=== PATIENT | male | born 1985 | race Two or more races ===

== ENCOUNTER 2020-05-16 06:58 | Inpatient (IN) | payer OTHER ==
[2020-05-16 07:20] VITALS: BMI 23.3
[2020-05-16] MEDS ORDERED: FAMOTIDINE 20 MG/50 ML IVPB 20 MG/50 ML MG IVPB ONE ×2 (07:36→08:27)
[2020-05-16] MEDS ORDERED: SODIUM CHLORIDE 1,000 ML IV STA ×2 (07:36→09:07)
[2020-05-16] MEDS ORDERED: MAG HYDROX/AL HYDROX/SIMETH 30 ML UNIT-DOSE CUP PO ONE (07:36)
--- NOTE | 2020-05-16 07:44 | PDOC ---
History of Present Illness - General Chief Complaint: Nausea/Vomiting Stated Complaint: VOMITING Time Seen by Provider: 05/16/20 07:32 - History of Present Illness Initial Comments: Pt is a 34yo M with no significant PMH who presents with nausea/vomiting. States that episodes began last night with "throwing up all night", last ate soup around 9pm. States that he has had ~20 episodes of emesis, described as watery brown. States that he tried to drink water, but also threw that back up. Denies any recent travel, sick contacts. Reports chest pain with vomiting. Denies fevers, chills, abdominal pain, diarrhea, constipation. Denies any past episodes of similar symptoms. States that he regularly drinks 3-4 12oz cans of beers a day. Last drink was 5 days ago, when he had 5 cans of beer. PCP: none PMH: denies PSHx: hand surgery Meds: denies All: NKDA Social: smokes 3 cigarettes/day, drink 3-4 beers/day, denies illicit substance use Past History - Medical History Allergies/Adverse Reactions: Allergies Allergy/AdvReac Type Severity Reaction Status Date / Time No Known Drug Allergies Allergy Mild Verified 05/16/20 07:14 [employer] Allergy Intermediate Hives Uncoded 05/16/20 07:14 Home Medications: Ambulatory Orders Tobramycin 0.3% Ophth Soln [Tobrex Ophthalmic Solution -] 1 drop OS Q4HWA #1 drops 01/30/15 COPD: No - Psycho-Social/Smoking History Smoking Status: Yes Smoking History: Never smoked Have you smoked in the past 12 months: Yes Number of Cigarettes Smoked Daily: 3 Information on smoking cessation initiated: No 'Breaking Loose' booklet given: 01/30/15 - Substance Abuse Hx (Audit-C & DAST Scrn) How often the patient has a drink containing alcohol: Never Score: In Men: 4 or > Positive; In Women: 3 or > Positive: 0 Screen Result (Pos requires Nsg. Audit-10AR): Negative In the last yr the pt used illegal drug/Rx for NonMed reason: No Score: Yes response is considered Positive: 0 Screen Result (Positive result requires Nsg. DAST-10): Negative Review of Systems - Review of Systems Comments:: CONSTITUTIONAL:denies fever, chills, diaphoresis, generalized weakness HEENT:denies rhinorrhea, nasal congestion, sore throat, ear pain, eye pain, visual Changes CARDIOVASCULAR:denies chest pain, syncope, palpitations, irregular heart rate, lightheadedness, peripheral edema RESPIRATORY:denies cough, shortness of breath, wheezing GASTROINTESTINAL: reports nausea, vomiting; denies abdominal pain, diarrhea, constipation GENITOURINARY:denies dysuria, frequency, urgency, hematuria MUSCULOSKELETAL:denies myalgia, arthralgia, neck pain, back pain HEMATOLOGIC/IMMUNOLOGIC:denies easy bleeding, easy bruising NEUROLOGIC:denies headache, loss of consciousness SKIN:denies rash, itching, pallor *Physical Exam - Vital Signs Last Vital Signs Temp Pulse Resp BP Pulse Ox 99.0 F 111 H 18 160/104 H 97 05/16/20 07:15 05/16/20 07:15 05/16/20 07:15 05/16/20 07:15 05/16/20 07:15 - Physical Exam General: awake, AOX3 (not oriented to month), in no acute distress, tremulous Head: normocephalic, atraumatic Eyes: PERRL, anicteric sclera, conjunctiva clear ENT: hearing grossly normal, oropharynx clear without exudates. Moist mucous membranes, tongue fasciculations Neck: supple, normal ROM Lung: equal breath sounds b/l, CTA b/l, no crackles, wheezes; no distress, speaks full sentences Heart: tachycardic, normal S1, S2, no murmurs, rubs, gallops Abdomen: soft, non tender, normoactive bowel sounds, no guarding, rebound, masses Extremities: no edema, no erythema or tenderness, DP/PT pulses 2+ and symmetric, no clubbing, cyanosis Neuro: moves all extremities, slow speech, sensation intact Skin: warm, dry, no rashes or lesions noted ED Treatment Course - LABORATORY CBC & Chemistry Diagram: 05/16/20 07:35 05/16/20 07:35 Medical Decision Making - Medical Decision Making Pt is a 34yo M with no significant PMH who presents with nausea/vomiting. Tremulous on exam. Vital Signs Period Temp Pulse Resp BP Sys/Ramos Pulse Ox Last 24 Hr 99.0 F 111 18 160/104 97 DDx: alcohol withdrawal, asad crooks tear, peptic ulcer Plan: labs, ativan, anti-emetic, IVF EKG: HR 81bpm, normal sinus rhythm, OR 140ms, QRS 90ms, QTc 432ms, no ST changes Labs: thrombocytopenia, no leukocytosis, no anemia, hyponatremia, hypokalemia, no MARSHALL, elevated LFTs, +alcohol Laboratory Tests 05/16/20 05/16/20 07:35 07:35 WBC 6.2 RBC 4.22 Hgb 13.9 Hct 40.0 MCV 94.9 MCH 32.9 MCHC 34.7 RDW 16.1 H Plt Count 119 L D MPV 8.0 Absolute Neuts (auto) 5.2 Neutrophils % 84.9 H D Lymphocytes % 4.0 L D Monocytes % 10.6 H Eosinophils % 0.1 D Basophils % 0.4 Nucleated RBC % 0 Sodium 120 L Potassium 3.3 L Chloride 84 L Carbon Dioxide 16 L Anion Gap 21 H BUN 3.6 L Creatinine 0.9 Est GFR (CKD-EPI)AfAm 127.80 Est GFR (CKD-EPI)NonAf 110.27 Random Glucose 134 H Calcium 8.6 Magnesium 2.4 Total Bilirubin 1.0 AST 117 H ALT 128 H Alkaline Phosphatase 115 Total Protein 7.8 Albumin 4.4 Lipase 79 Alcohol, Quantitative 18.3 H Gave Ativan, patient's tremor improved but still present; gave librium Spoke with Dr. Jordon Duron who accepted care for patient. Admitting Dr. Ch Disposition Admit 05/16/20 09:20 Discharge - Discharge Information Problems reviewed: Yes Clinical Impression/Diagnosis: Hyponatremia Alcohol withdrawal Qualifiers: Complication of substance-induced condition: uncomplicated Qualified Code(s): F10.230 - Alcohol dependence with withdrawal, uncomplicated Condition: Stable - Admission Yes - Follow up/Referral - Patient Discharge Instructions - Post Discharge Activity
[2020-05-16 08:12] LABS: BASO % 0.4 % (0-2.0); EOS % 0.1 % (0-4.5); HEMOGLOBIN 13.9 GM/dL (11.7-16.9); MCH 32.9 pg (25.7-33.7); MCHC 34.7 g/dl (32.0-35.9); MEAN CELL VOLUME 94.9 fl (80-96); MONO % 10.6 % (3.8-10.2); NEUT % 84.9 % (42.8-82.8); PLATELET COUNT 119 K/MM3 (134-434); RBC 4.22 M/mm3 (4.00-5.60); RDW 16.1 % (11.9-15.9); WHITE BLOOD COUNT 6.2 K/mm3 (4.0-10.0)
[2020-05-16 08:24] LABS: ALBUMIN 4.4 g/dl (3.4-5.0); BLOOD UREA NITROGEN 3.6 mg/dL (7-18); CALCIUM 8.6 mg/dL (8.5-10.1); CREATININE 0.9 mg/dL (0.55-1.3); MAGNESIUM 2.4 mg/dL (1.8-2.4); POTASSIUM 3.3 mmol/L (3.5-5.1); TOT PROT 7.8 g/dl (6.4-8.2)
[2020-05-16] MEDS ORDERED: LORazepam 2 MG/ML SDV VIAL ONE (08:25)
[2020-05-16] MEDS ORDERED: MAG HYDROX/AL HYDROX/SIMETH 30 ML UNIT-DOSE CUP ONE (08:26)
--- NOTE | 2020-05-16 08:34 | PDOC ---
Attending Attestation - Resident Resident Name: Echo Saravia - ED Attending Attestation I have performed the following: I have examined & evaluated the patient, The case was reviewed & discussed with the resident, I agree w/resident's findings & plan, Exceptions are as noted - HPI HPI: 05/16/20 08:31 34 M with no significant PMH presents to ED with nausea and vomiting. Pt reports 2 days of severe persistent nausea. Denies any significant abdominal pain. States that he is a daily drinker but denies any ETOH within last 5 days. No h/o withdrawals. No history of seizures. Denies any auditory or visual hallucinations. - Physicial Exam PE: 05/16/20 08:32 See resident exam - Medical Decision Making 05/16/20 08:33 34 M with N+V, likely ETOH withdrawal. Pt tremulous on exam. - Labs - Ativan - GI cocktail, IV fluids 05/16/20 08:33 Labs notable for hyponatremia - ?beer potomania Mild transaminitis, + serum ETOH Discharge - Discharge Information Problems reviewed: Yes Clinical Impression/Diagnosis: Hyponatremia Alcohol withdrawal Qualifiers: Complication of substance-induced condition: uncomplicated Qualified Code(s): F10.230 - Alcohol dependence with withdrawal, uncomplicated Condition: Stable Disposition: AGAINST MEDICAL ADVICE - Follow up/Referral - Patient Discharge Instructions - Post Discharge Activity
[2020-05-16] MEDS ORDERED: chlordiazePOXIDE HCL 25 MG CAPSULE PO ONE (08:45)
[2020-05-16 10:31] LABS: BLOOD UREA NITROGEN 3.2 mg/dL (7-18); CALCIUM 8.2 mg/dL (8.5-10.1); CREATININE 0.6 mg/dL (0.55-1.3); POTASSIUM 3.6 mmol/L (3.5-5.1)
[2020-05-16] MEDS ORDERED: SODIUM CHLORIDE 1,000 ML IV SCH (11:30)
[2020-05-16] MEDS ORDERED: diazePAM CARPU-JECT 10 MG/2 ML DISP.SYRIN IVPUSH ONE (11:48)
[2020-05-16] MEDS ORDERED: THIAMINE HCL 100 MG TABLET (FP) ONE (11:51)
[2020-05-16] MEDS ORDERED: THIAMINE HCL 200 MG/2 ML VIAL IVPB ONE (12:00)
[2020-05-16] MEDS ORDERED: diazePAM CARPU-JECT 10 MG/2 ML DISP.SYRIN ONE (12:17)
[2020-05-16] MEDS ORDERED: THIAMINE HCL 200 MG/2 ML VIAL ONE (12:18)
[2020-05-16] MEDS ORDERED: FOLIC ACID 1 MG TABLET (FP) ONE (12:18)
[2020-05-16] MEDS: FOLIC ACID 1 MG TABLET (FP) PO SCH (12:30)
--- NOTE | 2020-05-16 13:01 | HP ---
CHIEF COMPLAINT: Abdominal pain PCP: None HISTORY OF PRESENT ILLNESS: 34yo M with no significant medical history who presents today with agitation and abdominal pain. Patient reports he drinks 3-5 beer cans per day with occasional binge drinking on the weekends with last drink 5 days prior. Patient reports having multiple episodes of NB/NB vomiting up to 15 times in one day. He endorses PO intolerance and could not drink without vomiting. Patient currently is experiencing chills, tremoring, tactile disturbances on upper extremities without any motor difficulties, and diaphoresis. Pt has never been given diagnosis of Hepatitis before and has never received blood products. He has poor follow-up, but states he hasn't had any reason to go to the doctor. Patient would like to go to rehab/detox to help with his alcohol withdrawal. Pt denies any travel, sick contacts, shortness of breath, visual and audio hallucinations. Recent Travel: None PAST MEDICAL HISTORY: None PAST SURGICAL HISTORY: None Social History: Smokin cigarettes per day Alcohol: 3-5 beer cans per day (last drink 5 days prior; occassional binge drinking) Drugs: No drugs Family History: None that he knows. Parents both alive Allergies No Known Drug Allergies Allergy (Mild, Verified 05/16/20 07:14) AM[employer] Allergy (Intermediate, Uncoded 05/16/20 07:14) Hives HOME MEDICATIONS: Home Medications Medication Instructions Recorded Tobramycin 0.3% Ophth Soln [Tobrex 1 drop OS Q4HWA #1 drops 01/30/15 Ophthalmic Solution -] REVIEW OF SYSTEMS As per HPI PHYSICAL EXAMINATION Vital Signs - 24 hr 05/16/20 05/16/20 07:15 11:20 Temperature 99.0 F 98.5 F Pulse Rate 111 H Pulse Rate [ 116 H Left] Respiratory 18 Rate Blood Pressure 160/104 H Blood Pressure 136/88 [Right Arm] O2 Sat by Pulse 97 100 Oximetry (%) GENERAL: Mod distress, Awake, alert, and fully oriented HEENT: Nc/AT, EOMI with minimal horizontal nystagmus, ROSINA, no scleral icterus, dry MM NECK: No JVD LUNGS: CTA bilaterally. No wheezes, and no crackles. No accessory muscle use. HEART: Tachycardic with regular rhythm, normal S1 and S2 without murmur ABDOMEN: Soft, minimal tenderness in the epigastric region, nondistendend, no surgical scars seen, no rebound, no guarding, no hepatomegaly. No asterixis EXTREMITIES: 2+ pulses, warm, well-perfused. No calf tenderness. No peripheral edema. NEUROLOGICAL: cotton presser II-XII intact. Sensation intact grossly in all four extremities. Strength 5/5 in all four extremities. Mild tremoring. Horizontal nystagmus as above. PSYCHIATRIC: Cooperative. Good eye contact. Appropriate mood and affect. SKIN: Warm, dry, no rashes, no jaundice, normal capillary refill. Laboratory Results - last 24 hr 05/16/20 05/16/20 05/16/20 07:35 07:35 07:35 WBC 6.2 RBC 4.22 Hgb 13.9 Hct 40.0 MCV 94.9 MCH 32.9 MCHC 34.7 RDW 16.1 H Plt Count 119 L D MPV 8.0 Absolute Neuts (auto) 5.2 Neutrophils % 84.9 H D Lymphocytes % 4.0 L D Monocytes % 10.6 H Eosinophils % 0.1 D Basophils % 0.4 Nucleated RBC % 0 Sodium 120 L Potassium 3.3 L Chloride 84 L Carbon Dioxide 16 L Anion Gap 21 H BUN 3.6 L Creatinine 0.9 Est GFR (CKD-EPI)AfAm 127.80 Est GFR (CKD-EPI)NonAf 110.27 Random Glucose 134 H Serum Osmolality 261 L Calcium 8.6 Magnesium 2.4 Total Bilirubin 1.0 AST 117 H ALT 128 H Alkaline Phosphatase 115 Total Protein 7.8 Albumin 4.4 Lipase 79 Alcohol, Quantitative 18.3 H 05/16/20 09:00 WBC RBC Hgb Hct MCV MCH MCHC RDW Plt Count MPV Absolute Neuts (auto) Neutrophils % Lymphocytes % Monocytes % Eosinophils % Basophils % Nucleated RBC % Sodium 124 L Potassium 3.6 Chloride 89 L Carbon Dioxide 20 L Anion Gap 14 BUN 3.2 L Creatinine 0.6 Est GFR (CKD-EPI)AfAm 150.97 Est GFR (CKD-EPI)NonAf 130.26 Random Glucose 111 H Serum Osmolality Calcium 8.2 L Magnesium Total Bilirubin AST ALT Alkaline Phosphatase Total Protein Albumin Lipase Alcohol, Quantitative ASSESSMENT/PLAN: Alcohol Withdrawal Syndrome Hypoosmolar Hyponatremia Transaminitis Thrombocytopenia Elevated BP in setting of above --CIWA score 18 --Will start Librium taper --Monitor LFTs and DT precautions --Consulted detox specialist for management and placement into detox facility --Transaminitis related to alcohol use --Thaimine daily --Folic acid daily --Gentle IV hydration: NS @75cc/hr --Urinary tox screen ordered --Hepatitis panel ordered --If continued increase in LFTs can perform RUQ U/S --Hypoosmolar hyponatremia likely related to vomiting and alcohol use --Will use gentle IVF and monitor Na --Do not raise Na more than 10 mEq in 24/hrs FEN: Fluids: Gentle hydration as above Electrolyte abnormalities: Mild hypokalemia; replete Nutrition: NPO until vomiting/nausea ceases PPX: GI - Protonix DVT - Lovenox daily Dispo: Med-surg admit Tito Ch, DO - IM Visit type - Emergency Visit Emergency Visit: Yes ED Registration Date: 05/16/20 Care time: The patient presented to the Emergency Department on the above date and was hospitalized for further evaluation of their emergent condition. - New Patient This patient is new to me today: Yes Date on this admission: 05/16/20 - Critical Care Critical Care patient: No
[2020-05-16] MEDS ORDERED: POTASSIUM CHLORIDE TABS 20 MEQ TABLET.ER (FP) PO ONE ×2 (13:22→13:45)
[2020-05-16] MEDS ORDERED: KCL 10 MEQ IVPB 10 MEQ/100 ML INFUS.BAG IVPB SCH (13:30)
[2020-05-16] MEDS ORDERED: chlordiazePOXIDE HCL 25 MG CAPSULE ONE (13:45)
[2020-05-16] MEDS: chlordiazePOXIDE HCL 25 MG CAPSULE PO SCH ×2 (13:46→21:30)
--- NOTE | 2020-05-16 14:33 | CON.NEP ---
Consult Consult Specialty:: nephrology Reason for Consultation:: hyponatremia - History of Present Illness History of Present Illness: Pt is a 34yo M with no significant PMH who presents with nausea/vomiting. States that episodes began last night with "throwing up all night", last ate soup around 9pm. States that he has had ~20 episodes of emesis, described as watery brown. States that he tried to drink water, but also threw that back up. Denies any recent travel, sick contacts. Reports chest pain with vomiting. Denies fevers, chills, abdominal pain, diarrhea, constipation. Denies any past episodes of similar symptoms. States that he regularly drinks 3-4 12oz cans of beers a day. Last drink was 5 days ago, when he had 5 cans of beer. Says he was drinking water because of the vomiting. Also complains of a rash which he says is poison lula. Has tremors and wants something for them - History Source History Provided By: Patient Limitations to Obtaining History: No Limitations - Alcohol/Substance Use Hx Alcohol Use: Yes (6 beers/day) - Smoking History Smoking history: Never smoked Have you smoked in the past 12 months: Yes Aproximately how many cigarettes per day: 3 Home Medications - Allergies Allergies/Adverse Reactions: Allergies Allergy/AdvReac Type Severity Reaction Status Date / Time No Known Drug Allergies Allergy Mild Verified 05/16/20 07:14 [employer] Allergy Intermediate Hives Uncoded 05/16/20 07:14 - Home Medications Home Medications: Ambulatory Orders NK [No Known Home Medication] 05/16/20 Review of Systems - Review of Systems Constitutional: reports: Weakness Eyes: reports: No Symptoms HENT: reports: No Symptoms Neck: reports: No Symptoms Cardiovascular: reports: No Symptoms Respiratory: reports: No Symptoms Gastrointestinal: reports: Vomiting Genitourinary: reports: No Symptoms Breasts: reports: No Symptoms Reported Musculoskeletal: reports: No Symptoms Integumentary: reports: Rash Neurological: reports: Tremors Endocrine: reports: No Symptoms Hematology/Lymphatic: reports: No Symptoms Psychiatric: reports: No Symptoms Nephrology Consult - Height Height: 5 ft 6 in - Weight Weight: 145 lb - BMI Body Mass Index (BMI): 23.3 - Lab Results CBC,BMP: CBC, BMP 05/16/20 07:35 05/16/20 09:00 Anion Gap: Anion Gap Anion Gap 14 MMOL/L (8-16) 05/16/20 09:00 - Imaging Chest X-ray: Report Reviewed - Physical Examination Vital Signs: Vital Signs Temperature 98.5 F 05/16/20 11:20 Pulse Rate 116 H 05/16/20 11:20 Respiratory Rate 18 05/16/20 07:15 Blood Pressure 136/88 05/16/20 11:20 O2 Sat by Pulse Oximetry (%) 100 05/16/20 11:20 Constitutional: Yes: No Distress, Calm Eyes: Yes: Conjunctiva Clear, EOM Intact HENT: Yes: Atraumatic, Normocephalic Neck: Yes: Supple, Trachea Midline Cardiovascular: Yes: Regular Rate and Rhythm Respiratory: Yes: CTA Bilaterally Gastrointestinal: Yes: Normal Bowel Sounds, Soft Renal/: Yes: WNL Musculoskeletal: Yes: WNL Extremities: Yes: WNL Edema: No Peripheral Pulses WNL: Yes Integumentary: Yes: Rash Wound/Incision: Yes: Clean/Dry Neurological: Yes: Alert, Oriented Psychiatric: Yes: Alert, Oriented Assessment/Plan IMPRESSION Hyponatremia- probably from etoh intoxication and little solute intake Rash may be poison lula as he says alcohol dependence r/o withdrawal PLAN agree with saline repeat sodium obtain urine analysis,tsh and cortisol must not allow patients sodium to rise more than 8 by tomorrow start d5w and desmopressin if necessary MV
[2020-05-16 15:29] LABS: EPI CELLS 1 /uL (0-25.1); HYALINE CASTS 0 /uL (0-3.1); URINE APPEARANCE Error; URINE BACTERIA 13 /uL (0-1359); URINE BILIRUBIN NEGATIVE (NEGATIVE); URINE COLOR YELLOW; URINE GLUCOSE (UA) NEGATIVE (NEGATIVE); URINE KETONE 1+ (NEGATIVE); URINE LEUK ESTERASE NEGATIVE (NEGATIVE); URINE NITRITE NEGATIVE (NEGATIVE); URINE PROTEIN NEGATIVE (NEGATIVE); URINE RBC 1 /uL (0-23.9); URINE UROBILINOGEN 0.2 mg/dL (0.2-1.0); URINE WBC 1 /uL (0-25.8)
[2020-05-16 15:52] LABS: COCAINE, UR NEGATIVE ng/ml (CUTOFF=300); METHADONE, UR NEGATIVE ng/ml (CUTOFF=300); OPIATES, URI NEGATIVE ng/ml (CUTOFF=300); PHENCYCLIDINE,URINE NEGATIVE ng/ml (CUTOFF=25); URINE AMPHETAMINES NEGATIVE ng/ml (CUTOFF=500); URINE BARBITURATES NEGATIVE ng/ml (CUTOFF=200); URINE BENZODIAZEPINES NEGATIVE ng/ml (CUTOFF=200)
[2020-05-16 17:49] LABS: BLOOD UREA NITROGEN 3.8 mg/dL (7-18); CALCIUM 8.7 mg/dL (8.5-10.1); CREATININE 0.6 mg/dL (0.55-1.3); POTASSIUM 4.2 mmol/L (3.5-5.1)
[2020-05-16] MEDS: DEXTROSE 5%-WATER - 1,000 ML IV SCH (21:31)
[2020-05-17] MEDS ORDERED: diphenhydrAMINE HCL 25 MG CAPSULE (FP) PO PRN (01:29)
[2020-05-17 03:02] LABS: CALCIUM 8.6 mg/dL (8.5-10.1); CREATININE 0.6 mg/dL (0.55-1.3); POTASSIUM 3.7 mmol/L (3.5-5.1)
[2020-05-17] MEDS ORDERED: DESMOPRESSIN ACETATE 4 MCG/ML AMP IVPB ONE ×2 (04:27→11:00)
[2020-05-17] MEDS ORDERED: DESMOPRESSIN ACETATE 4 MCG/ML AMP SQ ONE (05:15)
[2020-05-17] MEDS: chlordiazePOXIDE HCL 25 MG CAPSULE PO SCH ×3 (05:52→22:18)
[2020-05-17 08:14] LABS: HEMATOCRIT 35.1 % (35.4-49); HEMOGLOBIN 11.9 GM/dL (11.7-16.9); MCH 32.1 pg (25.7-33.7); MEAN CELL VOLUME 94.4 fl (80-96); MEAN PLT VOLUME 8.6 fl (7.5-11.1); PLATELET COUNT 102 K/MM3 (134-434); RBC 3.71 M/mm3 (4.00-5.60); RDW 16.7 % (11.9-15.9); WHITE BLOOD COUNT 2.6 K/mm3 (4.0-10.0)
[2020-05-17 08:45] LABS: ALBUMIN 3.7 g/dl (3.4-5.0); BILIRUBIN,TOTAL 1.1 mg/dL (0.2-1); BLOOD UREA NITROGEN 3.1 mg/dL (7-18); CALCIUM 8.4 mg/dL (8.5-10.1); CREATININE 0.6 mg/dL (0.55-1.3); MAGNESIUM 2.5 mg/dL (1.8-2.4); POTASSIUM 3.4 mmol/L (3.5-5.1); TOT PROT 6.4 g/dl (6.4-8.2)
[2020-05-17] MEDS ORDERED: PT OWN MED DRAWER 7, Y5N ONE ×2 (09:20→10:58)
[2020-05-17] MEDS: FOLIC ACID 1 MG TABLET (FP) PO SCH (09:23)
[2020-05-17] MEDS ORDERED: PANTOPRAZOLE 40 MG TABLET PO SCH (10:00)
[2020-05-17] MEDS ORDERED: ENOXAPARIN NA (PORCINE) 30 MG/0.3 ML DISP.SYRIN SQ SCH (10:00)
--- NOTE | 2020-05-17 10:25 | PN ---
Progress Note (short form) - Note Progress Note: RENAL Pt is awake and alert comfortable says he ate well has no complaints Last Vital Signs Temp Pulse Resp BP Pulse Ox 98.8 F 67 20 121/78 100 05/17/20 05:00 05/17/20 05:00 05/17/20 05:00 05/17/20 05:00 05/17/20 05:00 lungs clear cvs s1s2 rr abd soft ext no edema neuro a+ox3 Current Medications Generic Name Dose Route Start Last Admin Trade Name Freq PRN Reason Stop Dose Admin Chlordiazepoxide HCl 25 mg 05/16/20 13:00 05/17/20 05:52 Librium - PO 05/17/20 21:01 25 mg Q8H MIRELLA Administration Chlordiazepoxide HCl 10 mg 05/19/20 00:00 Librium - PO 05/19/20 23:59 Q12H PRN Signs/symptoms of Withdrawal Chlordiazepoxide HCl 15 mg 05/18/20 05:00 Librium - PO 05/18/20 21:01 Q8H MIRELLA Chlordiazepoxide HCl 10 mg 05/19/20 05:00 Librium - PO 05/19/20 21:01 Q8H MIRELLA Chlordiazepoxide HCl 10 mg 05/20/20 05:00 Librium - PO 05/20/20 05:01 ONCE ONE Diphenhydramine HCl 25 mg 05/17/20 01:29 05/17/20 01:46 Benadryl - PO 25 mg ONCE PRN Administration FOR ITCHING Enoxaparin Sodium 30 mg 05/17/20 10:00 05/17/20 09:23 Lovenox - SQ 30 mg DAILY MIRELLA Administration Folic Acid 1 mg 05/16/20 11:45 05/17/20 09:23 Folic Acid - PO 1 mg DAILY MIRELLA Administration Dextrose 1,000 mls @ 75 mls/hr 05/16/20 19:45 05/16/20 21:31 D5w - IV Not Given ASDIR MIRELLA Pantoprazole Sodium 40 mg 05/17/20 10:00 05/17/20 09:23 Protonix - PO 40 mg DAILY MIRELLA Administration CBC, BMP 05/17/20 06:25 05/17/20 06:25 IMPRESSION appears to have had beer potomania his urine sodium is not lower because he was not eating so had no solute hoing in hypokalemia PLAN agree with d5w since he meena by 18 in 1 day would add desmopressin and monitor sodium MV
--- NOTE | 2020-05-17 13:01 | PN ---
Physical Exam: SUBJECTIVE: Patient seen and examined 05/17/20: Still feels a little shaky but denies any chest pain, sob, nausea, vomiting or abdominal pain; ROS: As per HPI otherwise all other systems reviewed and are engative OBJECTIVE: Vital Signs Period Temp Pulse Resp BP Sys/Ramos Pulse Ox Last 24 Hr 98.4 F-99.4 F 67-104 20-20 121-129/71-82 97-100 GENERAL: The patient is awake, alert, and fully oriented, in no acute distress. fine tremors on outstretched hands HEAD: Normal with no signs of trauma. EYES: extraocular movements intact, sclera anicteric, conjunctiva clear. No ptosis. ENT: Ears normal, nares patent, oropharynx clear without exudates, moist mucous membranes. NECK: Trachea midline, full range of motion, supple. LUNGS: Breath sounds equal, clear to auscultation bilaterally, no wheezes, no crackles, no accessory muscle use. HEART: Regular rate and rhythm, S1, S2 without murmur, rub or gallop. ABDOMEN: Soft, nontender, nondistended, normoactive bowel sounds, no guarding, no rebound, no hepatosplenomegaly, no masses. EXTREMITIES: 2+ pulses, warm, well-perfused, no edema. NEUROLOGICAL: Cranial nerves II through XII grossly intact. Normal speech, gait not observed. PSYCH: Normal mood, normal affect. SKIN: Warm, dry, normal turgor, no rashes or lesions noted Laboratory Results - last 24 hr 05/16/20 05/16/20 05/16/20 07:35 07:35 07:35 WBC RBC Hgb Hct MCV MCH MCHC RDW Plt Count MPV Sodium Potassium Chloride Carbon Dioxide Anion Gap BUN Creatinine Est GFR (CKD-EPI)AfAm Est GFR (CKD-EPI)NonAf Random Glucose Calcium Phosphorus Magnesium Total Bilirubin AST ALT Alkaline Phosphatase Total Protein Albumin TSH Urine Color Yellow Urine Appearance Error Urine pH 5.0 Ur Specific [place] 1.006 L Urine Protein Negative Urine Glucose (UA) Negative Urine Ketones 1+ H Urine Blood 1+ H Urine Nitrite Negative Urine Bilirubin Negative Urine Urobilinogen 0.2 Ur Leukocyte Esterase Negative Urine WBC (Auto) 1 Urine RBC (Auto) 1 Urine Casts (Auto) 0 U Epithel Cells (Auto) 1 Urine Bacteria (Auto) 13 Urine Osmolality 226 L Ur Random Sodium 40 Opiates Screen Negative Methadone Screen Negative Barbiturate Screen Negative Phencyclidine Screen Negative Ur Amphetamines Screen Negative MDMA (Ecstasy) Screen Negative Benzodiazepines Screen Negative Cocaine Screen Negative U Marijuana (THC) Screen Negative 05/16/20 05/17/20 05/17/20 16:50 01:25 06:25 WBC 2.6 L RBC 3.71 L Hgb 11.9 Hct 35.1 L MCV 94.4 MCH 32.1 MCHC 34.0 RDW 16.7 H Plt Count 102 L MPV 8.6 Sodium 135 L 138 Potassium 4.2 3.7 Chloride 102 105 Carbon Dioxide 28 23 Anion Gap 5 L 10 BUN 3.8 L 3.0 L Creatinine 0.6 0.6 Est GFR (CKD-EPI)AfAm 150.97 150.97 Est GFR (CKD-EPI)NonAf 130.26 130.26 Random Glucose 82 84 Calcium 8.7 8.6 Phosphorus Magnesium Total Bilirubin AST ALT Alkaline Phosphatase Total Protein Albumin TSH Urine Color Urine Appearance Urine pH Ur Specific [place] Urine Protein Urine Glucose (UA) Urine Ketones Urine Blood Urine Nitrite Urine Bilirubin Urine Urobilinogen Ur Leukocyte Esterase Urine WBC (Auto) Urine RBC (Auto) Urine Casts (Auto) U Epithel Cells (Auto) Urine Bacteria (Auto) Urine Osmolality Ur Random Sodium Opiates Screen Methadone Screen Barbiturate Screen Phencyclidine Screen Ur Amphetamines Screen MDMA (Ecstasy) Screen Benzodiazepines Screen Cocaine Screen U Marijuana (THC) Screen 05/17/20 06:25 WBC RBC Hgb Hct MCV MCH MCHC RDW Plt Count MPV Sodium 136 Potassium 3.4 L Chloride 103 Carbon Dioxide 26 Anion Gap 7 L BUN 3.1 L Creatinine 0.6 Est GFR (CKD-EPI)AfAm 150.97 Est GFR (CKD-EPI)NonAf 130.26 Random Glucose 80 Calcium 8.4 L Phosphorus 2.0 L Magnesium 2.5 H Total Bilirubin 1.1 H AST 81 H ALT 90 H Alkaline Phosphatase 87 Total Protein 6.4 Albumin 3.7 TSH 2.07 Urine Color Urine Appearance Urine pH Ur Specific [place] Urine Protein Urine Glucose (UA) Urine Ketones Urine Blood Urine Nitrite Urine Bilirubin Urine Urobilinogen Ur Leukocyte Esterase Urine WBC (Auto) Urine RBC (Auto) Urine Casts (Auto) U Epithel Cells (Auto) Urine Bacteria (Auto) Urine Osmolality Ur Random Sodium Opiates Screen Methadone Screen Barbiturate Screen Phencyclidine Screen Ur Amphetamines Screen MDMA (Ecstasy) Screen Benzodiazepines Screen Cocaine Screen U Marijuana (THC) Screen Active Medications Generic Name Dose Route Start Last Admin Trade Name Freq PRN Reason Stop Dose Admin Chlordiazepoxide HCl 25 mg 05/16/20 13:00 05/17/20 12:51 Librium - PO 05/17/20 21:01 25 mg Q8H MIRELLA Administration Chlordiazepoxide HCl 10 mg 05/19/20 00:00 Librium - PO 05/19/20 23:59 Q12H PRN Signs/symptoms of Withdrawal Chlordiazepoxide HCl 15 mg 05/18/20 05:00 Librium - PO 05/18/20 21:01 Q8H MIRELLA Chlordiazepoxide HCl 10 mg 05/19/20 05:00 Librium - PO 05/19/20 21:01 Q8H MIRELLA Chlordiazepoxide HCl 10 mg 05/20/20 05:00 Librium - PO 05/20/20 05:01 ONCE ONE Diphenhydramine HCl 25 mg 05/17/20 01:29 05/17/20 01:46 Benadryl - PO 25 mg ONCE PRN Administration FOR ITCHING Enoxaparin Sodium 30 mg 05/17/20 10:00 05/17/20 09:23 Lovenox - SQ 30 mg DAILY MIRELLA Administration Folic Acid 1 mg 05/16/20 11:45 05/17/20 09:23 Folic Acid - PO 1 mg DAILY MIRELLA Administration Dextrose 1,000 mls @ 75 mls/hr 05/16/20 19:45 05/16/20 21:31 D5w - IV Not Given ASDIR MIRELLA Pantoprazole Sodium 40 mg 05/17/20 10:00 05/17/20 09:23 Protonix - PO 40 mg DAILY MIRELLA Administration ASSESSMENT/PLAN: 34 y/o male with hx of alcohol abuse admitted with alcohol withdrawal, hyponatremia *alcohol withdrawal - doing better cont ciwa with librium taper cont ivf, folic acid add thiamine, mvi *hyponatremia - hypovolemic hyponatremia now corrected but corrected quickly renal eval appreciated pt stanle cont to monitor on d5w desmopressin given * Panctopenia -- likely bone marrow suppression due to liver disease *transaminitis - due to alcoholic hepatitis trend lfts *dvt prophy - on lovenox Problem List - Problems (1) Alcohol withdrawal Code(s): F10.239 - ALCOHOL DEPENDENCE WITH WITHDRAWAL, UNSPECIFIED Qualifiers: Complication of substance-induced condition: uncomplicated Qualified Code(s): F10.230 - Alcohol dependence with withdrawal, uncomplicated Visit type - Emergency Visit Emergency Visit: Yes ED Registration Date: 05/16/20 Care time: The patient presented to the Emergency Department on the above date and was hospitalized for further evaluation of their emergent condition. - New Patient This patient is new to me today: Yes Date on this admission: 05/17/20 - Critical Care Critical Care patient: No - Discharge Referral Referred to [facility] Med [facility].C[facility] No
[2020-05-17] MEDS: DEXTROSE 5%-WATER - 1,000 ML IV SCH (13:27)
[2020-05-17 21:37] VITALS: BP 144/98; PULSE 71; TEMP 98.6
[2020-05-18] MEDS: DEXTROSE 5%-WATER - 1,000 ML IV SCH (00:18)
--- NOTE | 2020-05-18 04:18 | PN ---
Progress Note (short form) - Note Progress Note: Notified by nurse that pt wanted to leave AMA. Presented to bedside shortly after. Pt was AOx4; stated that he wanted to leave against medical advice. After explaining in detail, the risks associated with leaving against medical advice, including , the patient still elected to leave against medical advice. The AMA form was filled out.
[2020-05-18] MEDS ORDERED: chlordiazePOXIDE 5 MG CAPSULE PO SCH (05:00)
[2020-05-18] MEDS ORDERED: MULTIVIT-MINERALS ORAL LIQUID PO SCH (10:00)
[2020-05-18] MEDS ORDERED: THIAMINE HCL 100 MG TABLET (FP) PO SCH (10:00)
--- NOTE | 2020-05-18 10:12 | EKG ---
Test Reason : Blood Pressure : / mmHG Vent. Rate : 081 BPM Atrial Rate : 081 BPM P-R Int : 140 ms QRS Dur : 090 ms QT Int : 372 ms P-R-T Axes : 067 044 039 degrees QTc Int : 432 ms NORMAL SINUS RHYTHM NONSPECIFIC ST ABNORMALITY ABNORMAL ECG NO PREVIOUS ECGS AVAILABLE Confirmed by Darcy Hendrickson ([id number]) on 05/18/2020 10:11:58 AM Referred By: Confirmed By:Darcy Hendrickson
[2020-05-18 19:06] LABS: HEP B CORE AB, TOT Negative (Negative)
[2020-05-19] MEDS ORDERED: chlordiazePOXIDE HCL 10 MG CAPSULE PO PRN
[2020-05-19] MEDS ORDERED: chlordiazePOXIDE HCL 10 MG CAPSULE PO SCH (05:00)
[2020-05-20] MEDS ORDERED: chlordiazePOXIDE HCL 10 MG CAPSULE PO ONE (05:00)
== END 2020-05-18 04:13 | disposition left against medical advice (07) | DRG 422 ==
LOC: JER 06:58 → JERBED 08:48 → J8W 15:31
PROVIDERS: ADMIT Internal Medicine; ATTEND Internal Medicine
PROC: HZ2ZZZZ Detoxification Services for Substance Abuse Treatment (ICD-10-PCS; principal; 2020-05-16)
DX: E87.1 Hypo-osmolality and hyponatremia (principal); F10.230 Alcohol dependence with withdrawal, uncomplicated; I10 Essential (primary) hypertension; R21 Rash and other nonspecific skin eruption; E87.6 Hypokalemia; E86.1 Hypovolemia; D61.818 Other pancytopenia; R11.2 Nausea with vomiting, unspecified; K70.10 Alcoholic hepatitis without ascites
CPT/HCPCS: 36415; 71045-TC-FY; 80048; 80053; 80307; 81003; 82533; 83690; 83735; 83930; 83935; 84100; 84295; 84300; 84443; 85025; 85027; 86704; 86706; 86707; 86708; 86709; 87340; 87522; 93005; 93010; 99285-25; J2597

== ENCOUNTER 2023-01-15 11:02 | Emergency (ER) | payer SELFPAY ==
[2023-01-15 11:05] VITALS: RESP 18; BMI 25.8
[2023-01-15] MEDS ORDERED: ONDANSETRON 4 MG/2 ML VIAL IVPUSH ONE (11:50)
[2023-01-15] MEDS ORDERED: SODIUM CHLORIDE 0.9% 500 ML INFUS.BAG IV ONE (11:50)
[2023-01-15] MEDS ORDERED: ACETAMINOPHEN 1000 MG/100 ML BAG IVPB ONE (11:50)
[2023-01-15] MEDS ORDERED: chlordiazePOXIDE HCL 25 MG CAPSULE PO ONE (11:51)
[2023-01-15] MEDS ORDERED: LORazepam 2 MG/ML SDV VIAL IVPUSH ONE (11:51)
[2023-01-15] MEDS ORDERED: ONDANSETRON 4 MG/2 ML VIAL ONE (12:12)
[2023-01-15] MEDS ORDERED: ACETAMINOPHEN INJECTION 100 ML IVPB ONE (12:12)
[2023-01-15] MEDS ORDERED: chlordiazePOXIDE HCL 25 MG CAPSULE ONE (12:14)
[2023-01-15 12:27] LABS: BASO % 0.5 % (0-2.0); EOS % 0.6 % (0-4.5); HEMATOCRIT 43.4 % (35.4-49); HEMOGLOBIN 14.9 GM/dL (11.7-16.9); MCH 31.3 pg (25.7-33.7); MCHC 34.4 g/dl (32.0-35.9); MEAN PLT VOLUME 7.7 fl (7.5-11.1); MONO % 17.7 % (3.8-10.2); NEUT % 70.2 % (42.8-82.8); PLATELET COUNT 94 10^3/uL (134-434); RBC 4.77 M/mm3 (4.00-5.60); RDW 14.1 % (11.9-15.9); WHITE BLOOD COUNT 3.1 K/mm3 (4.0-10.0)
[2023-01-15 12:34] LABS: PH,URINE 6.5 (5.0-8.0); URINE APPEARANCE CLEAR; URINE BILIRUBIN NEGATIVE (NEGATIVE); URINE COLOR YELLOW; URINE GLUCOSE (UA) NEGATIVE (NEGATIVE); URINE KETONE 1+ (NEGATIVE); URINE LEUK ESTERASE NEGATIVE (NEGATIVE); URINE NITRITE NEGATIVE (NEGATIVE); URINE PROTEIN NEGATIVE (NEGATIVE); URINE UROBILINOGEN 0.2 mg/dL (0.2-1.0)
[2023-01-15 12:46] LABS: ALBUMIN 4.4 g/dl (3.4-5.0); BLOOD UREA NITROGEN 5.9 mg/dL (7-18); CALCIUM 9.8 mg/dL (8.5-10.1); MAGNESIUM 2.1 mg/dL (1.8-2.4)
[2023-01-15 12:49] LABS: CREATININE 0.7 mg/dL (0.55-1.3)
[2023-01-15 12:51] LABS: BILIRUBIN,TOTAL 1.3 mg/dL (0.2-1); TOT PROT 8.4 g/dl (6.4-8.2)
[2023-01-15 13:50] VITALS: BP 151/90; PULSE 82; TEMP 98.9
== END 2023-01-15 14:32 | disposition home or self-care (01) ==
LOC: JER 11:02
PROC: 3E033NZ Introduction of Analgesics, Hypnotics, Sedatives into Peripheral Vein, Percutaneous Approach (ICD-10-PCS; principal; 2023-01-15)
PROC: 3E033GC Introduction of Other Therapeutic Substance into Peripheral Vein, Percutaneous Approach (ICD-10-PCS; 2023-01-15)
PROC: 3E033GC Introduction of Other Therapeutic Substance into Peripheral Vein, Percutaneous Approach (ICD-10-PCS; 2023-01-15)
DX: F10.239 Alcohol dependence with withdrawal, unspecified (principal); R10.13 Epigastric pain; R11.2 Nausea with vomiting, unspecified; R19.7 Diarrhea, unspecified; R25.1 Tremor, unspecified; F41.1 Generalized anxiety disorder; H43.399 Other vitreous opacities, unspecified eye; Y90.9 Presence of alcohol in blood, level not specified; Z20.822 Contact with and (suspected) exposure to COVID-19
CPT/HCPCS: 0241U-QW; 36415; 71045-TC-FY; 80053; 81003; 83690; 83735; 85025; 87086; 93005; 93010; 99285-25

== ENCOUNTER 2025-06-11 14:44 | Emergency (ER) | payer SELFPAY ==
[2025-06-11 14:55] VITALS: RESP 18; TEMP 97.9; BMI 24.2
[2025-06-11 16:32] LABS: ABSOLUTE IMMATURE GRANULOCYTES 0.02 x10^3/uL (0.0-0.031); BASOPHILS # 0.03 x10^3/uL (0.01-0.08); EOSINOPHIL % 1.4 % (0.8-7.0); EOSINOPHILS # 0.06 x10^3/uL (0.04-0.54); MCHC 34.3 g/dl (32.3-36.5); MEAN CELL VOLUME 89.7 fl (79.0-92.2); MEAN PLT VOLUME 10.0 fl (9.4-12.4); MONOCYTE # 0.86 x10^3/uL (0.30-0.82); MONOCYTE % 20.6 % (5.3-12.2); RDW 14.1 % (12.0-15.6)
[2025-06-11 16:50] LABS: GLUCOSE,RANDOM 126.0 mg/dL (74-106)
[2025-06-11 16:51] LABS: TOT PROT 8.3 g/dl (6.4-8.2)
[2025-06-11 16:52] LABS: CO2 26.0 mmol/L (21-32)
[2025-06-11 16:54] LABS: ALK PHOS 120.0 U/L (40-150)
[2025-06-11 16:56] LABS: CREATININE 0.64 mg/dL (0.55-1.3); SGOT/AST 282.0 U/L (5-34); SGPT/ALT 285.0 U/L (0-55)
[2025-06-11] MEDS ORDERED: FOLIC ACID 1 MG TABLET (FP) ONE (17:02)
[2025-06-11] MEDS ORDERED: THIAMINE 100 MG TABLET ONE (17:02)
[2025-06-11] MEDS: THIAMINE 100 MG TABLET PO ONE (17:04)
[2025-06-11] MEDS: FOLIC ACID 1 MG TABLET (FP) PO ONE (17:04)
[2025-06-11 17:47] LABS: HCV DIAGNOSTIC IN-HOUSE W/RFLX NON-REACTIVE (NONREACTIVE); HIV INTERPRETATION NEGATIVE (NEGATIVE)
[2025-06-11] MEDS: SODIUM CHLORIDE 1 GM TABLET PO ONE (18:22)
[2025-06-11 20:24] VITALS: BP 140/87; PULSE 72
== END 2025-06-11 20:31 | disposition home or self-care (01) ==
LOC: JER 14:44
DX: F10.939 Alcohol use, unspecified with withdrawal, unspecified (principal); E87.1 Hypo-osmolality and hyponatremia; H53.8 Other visual disturbances; R42 Dizziness and giddiness
CPT/HCPCS: 36415; 80053; 83735; 85025; 86803; 87389; 93005; 93010; 99284-25